=== PATIENT | female | born 1940 | race Caucasian/White ===

== ENCOUNTER 2024-04-07 15:41 | Emergency (ER) | payer MEDICARE ==
[2024-04-07] MEDS ORDERED: HYDROmorphone 0.5 MG/0.5 ML Syringe IV ONE (15:42)
[2024-04-07 16:04] LABS: BASOPHILS PERCENT AUTO 0.5 % (0.0-1.0); EOSINOPHILS PERCENT AUTO 2.7 % (1.0-3.0); HEMATOCRIT 37.8 % (37.0-47.0); HEMOGLOBIN 12.6 g/dL (12.0-16.0); LYMPHOCYTES PERCENT AUTO 17.7 % (20.5-50.1); MEAN CORPUSCULAR HEMOGLOBIN 31.8 pg (27.0-34.0); MEAN CORPUSCULAR HGB CONC 33.3 g/dL (33.0-35.0); MEAN CORPUSCULAR VOLUME 95.5 fL (80-100); MONOCYTES PERCENT AUTO 9.8 % (2-8); NEUTROPHILS PERCENT AUTO 69.3 % (42.2-75.2); PLATELET COUNT,PLT 216 10^3/uL (150-450); RED BLOOD CELL COUNT 3.96 10^6/uL (4.2-5.4); WHITE BLOOD CELL COUNT,WBC 8.4 10^3/uL (5.0-10.0)
[2024-04-07 16:20] LABS: PROTHROMBIN TIME 10.6 SEC (9.0-12.0)
[2024-04-07 16:27] LABS: A/G RATIO 0.9; ALBUMIN 3.4 g/dL (3.4-5.0); ANION GAP 9.4 mEq/L (7-13); BILIRUBIN DIRECT 0.2 mg/dL (0.0-0.2); BILIRUBIN INDIRECT 0.7; BILIRUBIN TOTAL 0.9 mg/dL (0.2-1.0); CALCIUM 8.9 mg/dL (8.5-10.1); CREATININE 1.24 mg/dL (0.55-1.02); EST CRCL DRUG DOSING (CG) 27.44 mL/min; POTASSIUM,K 4.4 mmol/L (3.5-5.1)
[2024-04-07] MEDS: HYDROmorphone 2 MG/ML Syringe IVPUSH PRN (17:01)
[2024-04-07] MEDS: HYDROmorphone 0.5 MG/0.5 ML Syringe ONE (17:25)
[2024-04-07] MEDS ORDERED: HYDROmorphone 0.5 MG/0.5 ML Syringe ONE (18:31)
== END 2024-04-07 18:41 ==
LOC: DL.ED 15:41
DX: S72.142A Displaced intertrochanteric fracture of left femur, initial encounter for closed fracture (principal); I48.91 Unspecified atrial fibrillation; I10 Essential (primary) hypertension; E03.9 Hypothyroidism, unspecified; Z86.73 Personal history of transient ischemic attack (TIA), and cerebral infarction without residual deficits; Z79.01 Long term (current) use of anticoagulants; Z79.82 Long term (current) use of aspirin; Z79.899 Other long term (current) drug therapy; Z88.5 Allergy status to narcotic agent; Z88.8 Allergy status to other drugs, medicaments and biological substances; W18.30XA Fall on same level, unspecified, initial encounter
CPT/HCPCS: 36415; 70450; 71045; 73502; 80048; 80076; 84484; 85025; 85610; 93005; 93010; 96374; 99284; 99285; J1170